=== PATIENT | female | born 1955 | race Caucasian/White ===

== ENCOUNTER 2020-09-19 21:02 | Emergency (ER) | payer SELFPAY ==
[~2020-09-19] VITALS: Ht 162.6 cm; Wt 62.6 kg
[2020-09-19 21:15] VITALS: BP_SYST 145
--- NOTE | 2020-09-19 21:15 | NUR ---
Placed in room 07 . Placed on travel rn or, blood pressure machine and pulse oximeter. To gown for exam. Side rails up.
--- NOTE | 2020-09-19 21:30 | NUR ---
Pt brought by self, A&Ox4, pt presents to ER for failure to thrive, pt not eating x 6 days, recent UTI, states food is poisoned, skin pink and warm, respirations even and unlabored, pt VSS, will cont to monitor.
--- NOTE | 2020-09-19 21:35 | NUR ---
Dr Melara evaluating patient at bedside
--- NOTE | 2020-09-19 22:00 | NUR ---
Sunitha ely in [facility] - 09/19/20 at 2320 by [email or web address] Alejandro mac at bedside
--- NOTE | 2020-09-19 22:10 | NUR ---
Pt refusing urinary catheter
[2020-09-19 22:14] LABS: BASOPHILS # (AUTO) 0.1 K/uL (0.0-0.2); BASOPHILS % (AUTO) 0.8 % (0.0-2.0); EOSINOPHILS % (AUTO) 0.4 % (0.0-4.0); HEMATOCRIT 40.5 % (36-48); HEMOGLOBIN 14.2 g/dL (12.0-16.0); LYMPHOCYTES # (AUTO) 0.8 K/uL (1.0-5.5); LYMPHOCYTES % (AUTO) 11.1 % (20.5-51.5); MEAN CORPUSCULAR HEMOGLOBIN 33 pg (27-31); MEAN CORPUSCULAR HGB CONC 35 % (32-36); MEAN CORPUSCULAR VOLUME 93 fL (79.0-98.0); MONOCYTES # (AUTO) 0.3 K/uL (0.0-1.0); MONOCYTES % (AUTO) 4.1 % (1.7-9.3); NEUTROPHILS # (AUTO) 6.1 K/uL (1.8-7.7); NEUTROPHILS % (AUTO) 83.6 % (40.0-70.0); PLATELET COUNT (AUTO) 186 K/uL (130-430); RED BLOOD CELL COUNT(AUTO) 4.34 MIL/uL (4.2-6.2); RED CELL DISTRIBUTION WIDTH 12.7 % (9.0-15.0); WHITE BLOOD COUNT (AUTO) 7.3 K/uL (4.8-10.8)
[2020-09-19 22:17] LABS: ANION GAP 16 (5-15); CALCIUM 8.7 mg/dL (8.4-11.0); CHLORIDE 101 mmol/L (98-107); CREATININE 0.84 mg/dL (0.55-1.30); GLUCOSE 69 mg/dL (70-99); POTASSIUM 3.1 mmol/L (3.5-5.1); SODIUM SERUM 140 mmol/L (136-145); UREA NITROGEN, BLOOD 15 mg/dL (8-21)
--- NOTE | 2020-09-19 22:17 | NUR ---
Called judy francis to notify sitter needs to be sent since pt on , transportation supervisor notified, charge nurse notified.
[2020-09-19 22:18] LABS: GFR AFRICAN AMERICAN 87 mL/min (>90)
--- NOTE | 2020-09-19 22:20 | NUR ---
Pt A&O x4, pt refusing urinary catheter at this time, notified
[2020-09-19 22:21] LABS: PROTHROMBIN TIME 10.7 SECS (9.5-12.5)
[2020-09-19 22:22] LABS: ACETONE, SERUM NEGATIVE (NEGATIVE)
[2020-09-19 22:23] LABS: ALANINE AMINOTRANSFERASE 23 U/L (12-78); ALBUMIN 3.1 g/dL (3.4-4.8); ASPARTATE AMINOTRANSFERASE 22 U/L (10-37)
[2020-09-19] MEDS ORDERED: risperiDONE 1 MG TABLET (RisperDAL) PO ONE (22:30)
[2020-09-19] MEDS ORDERED: NACL 0.9% 1,000 ML IV ONE (22:30)
[2020-09-19] MEDS ORDERED: HALOPERIDOL LACTATE 5 MG/ML VIAL IM ONE (22:30)
--- NOTE | 2020-09-19 22:30 | NUR ---
Alejandro mac at bedside
[2020-09-19] MEDS ORDERED: LORazepam 2 MG/ML VIAL IM ONE (23:00)
--- NOTE | 2020-09-19 23:23 | NUR ---
Assumed care of patient at change of shift. Introduced self to patient, positioned for comfort and safety w/ bed to low position sr up. Patient resting quietly. No acute distress noted. Vital signs within normal range. Medicated w/ ativan 1mg per MD orders. IVF 0.9%NS infusing with no s/s of infiltration at this time. Will cont to monitor and observe for any adverse reaction. Bed to low position sr up.
--- NOTE | 2020-09-19 23:23 | NUR ---
Report given to Mina ARORA
[2020-09-20] MEDS ORDERED: POTASSIUM CHLORIDE 20 MEQ TAB.PRT.SR PO ONE (00:30)
[2020-09-20 00:31] LABS: BILIRUBIN,URINE NEGATIVE (NEGATIVE); BLOOD, URINE 1+ (NEGATIVE); COLOR,URINE YELLOW (YELLOW); GLUCOSE,URINE NEGATIVE (NEGATIVE); KETONES,URINE 2+ (NEGATIVE); LEUKOCYTE ESTERASE ,URINE 3+ (NEGATIVE); NITRITE, URINE NEGATIVE (NEGATIVE); PROTEIN URINE NEGATIVE (NEGATIVE); UROBILINOGEN,URINE 0.2 (0.2-1.0)
[2020-09-20 00:32] LABS: CLARITY/URINE SLIGHTLY HAZY (CLEAR)
--- NOTE | 2020-09-20 00:44 | NUR ---
Medicated w/ 40meq/kcl po per MD orders. Will cont to monitor and observe for any adverse reaction. Bed to low position sr up. Sitter at bedside.
[2020-09-20 01:08] LABS: BACTERIA,URINE MODERATE /HPF (None Seen)
[2020-09-20] MEDS ORDERED: LEVOFLOXACIN IN DEXTROSE 5 % 100 ML IV ONE (01:30)
--- NOTE | 2020-09-20 01:34 | NUR ---
Patient to be transferred to [facility]. Is being transferred due to higher level of care. Receiving facility has accepting physician and available space. ER physician has signed transfer form. Patient or responsible alliance party has agreed to transfer and signed form. Patient belongings inventoried and will be sent with patient. Copy of nursing notes, lab reports, EKG, Physicians Orders and X-rays to be sent with patient. Report called to Damián at receiving facility. Receiving physician is Jorge. [facility] ambulance service has been called for transfer. ETA is 0430.
[2020-09-20] MEDS ORDERED: LORA-259 PO (01:36)
[2020-09-20] MEDS ORDERED: LEVO250T58 PO (01:36)
--- NOTE | 2020-09-20 01:39 | NUR ---
PT MOVED TO [facility] AWAITING TRANSPORT. SITTER FROM [facility] WITH PT.
--- NOTE | 2020-09-20 01:43 | NUR ---
Medicated w/ levaquin 500mg ivpb per MD orders. Will cont to monitor and observe for any adverse reaction. Bed to low position sr up. Sitter at bedside.
[2020-09-20] MEDS ORDERED: LORazepam 2 MG/ML VIAL IVP ONE (03:30)
[2020-09-20] MEDS ORDERED: HALOPERIDOL LACTATE 5 MG/ML VIAL IM ONE (03:30)
--- NOTE | 2020-09-20 03:30 | NUR ---
Patient resting quietly w/ sitter at bedside but at time attempts to get out of bed for which patient needs to be redirected back to her room. Upon returning to her bed patient sitting up in bed w/ feet dangling. Continue to onitor. No acute distress noted. Vital signs within normal range. Addendum: 09/20/20 at 0643 by [email or web address] Patient w/ increased restlessness was medicated w/ haldol and ativan after 2nd iv h.l. started to left wrist (iv site to right AC, clogged). Bed to low position sr up. continue to monitor.
--- NOTE | 2020-09-20 04:30 | NUR ---
patient ambulance deferred to another ER patient in ER 2nd to that patient required emergent transfer to [facility] for higher level of care. Patient to be picked up at 0700.
--- NOTE | 2020-09-20 05:30 | NUR ---
Patient resting quietly. No acute distress noted. Vital signs within normal range. Sitter at bedside. No bizarre or unusual behavior noted. continue to monitor. awaiting [facility] for transfer.
--- NOTE | 2020-09-20 07:15 | NUR ---
report given to lead EMT for [facility]. Patient given written and verbal discharge instructions and verbalizes understanding. ER MD discussed with patient the results and treatment provided. Patient in stable condition. ID arm band removed. IV catheter removed intact and dressing applied, no active bleeding. Rx of ativan and levaquin given. Patient educated on pain management and to follow up with PMD. Pain Scale 0. Opportunity for questions provided and answered. Medication side effect fact sheet provided.
[2020-09-20 07:16] VITALS: BP_SYST 127
== END 2020-09-20 07:16 | disposition home or self-care (01) ==
LOC: SED 21:02
DX: F23 Brief psychotic disorder (principal); N39.0 Urinary tract infection, site not specified; I10 Essential (primary) hypertension; Z88.0 Allergy status to penicillin; Z79.899 Other long term (current) drug therapy; Z20.822 Contact with and (suspected) exposure to COVID-19
CPT/HCPCS: 36415; 71045; 80053; 81000; 82009; 82550; 83605; 84484; 85025; 85610; 85730; 87081; 87086; 87426; 93005; 96361; 96372 ×2; 96374; 96376; 99285; J1630 ×2; J1956; J2060 ×2; J7030